=== PATIENT | male | born 1985 ===

== ENCOUNTER 2019-06-16 16:46 | Emergency (ER) | payer BC ==
[~2019-06-16] VITALS: Ht 185.4 cm; Wt 122.0 kg
[2019-06-16 17:47] LABS: BASOPHILS % 1.5 % (0.0-2.0); EOSINOPHILS % 2.1 % (0.0-5.0); HEMATOCRIT. 42.3 % (42.0-52.0); HEMOGLOBIN. 14.4 g/dL (14.0-18.0); LYMPHOCYTES % 29.6 % (20.0-50.0); MEAN CORPUSCULAR HEMOGLOBIN 28.8 pg (28.0-32.0); MEAN PLATELET VOLUME 8.2 fl (7.4-10.4); MONOCYTES % 9.9 % (2.0-8.0); NEUTROPHILS % 56.9 % (40.0-76.0); PLATELET 282 x1000/uL (130-400); RED BLOOD CELL COUNT 4.98 mill/uL (4.7-6.1); RED CELL DISTRIBUTION WIDTH 14.3 % (11.6-14.6)
[2019-06-16 17:49] LABS: CLARITY URINE TURBID (CLEAR); COLOR URINE YELLOW (YELLOW); KETONES URINE NEGATIVE (NEGATIVE); LEUKOCYTE ESTERASE URINE NEGATIVE (NEGATIVE); NITRITE URINE NEGATIVE (NEGATIVE); OCCULT BLOOD URINE NEGATIVE (NEGATIVE); PROTEIN URINE NEGATIVE (NEGATIVE); SPECIFIC GRAVITY URINE 1.023 (1.005-1.030)
[2019-06-16 17:54] LABS: CHLORIDE 108 mEq/L (98-107)
[2019-06-16 17:59] LABS: PROTHROMBIN TIME 10.4 sec (9.6-11.0)
[2019-06-16] MEDS ORDERED: KETOROLAC 15MG/ML VIAL IV ONE (18:00)
[2019-06-16] MEDS ORDERED: SODIUM CHLORIDE 0.9% 1,000 ML IV ONE (18:00)
[2019-06-16 19:03] VITALS: BP 148/84
== END 2019-06-16 19:15 | disposition home or self-care (01) ==
LOC: ER 16:46
DX: R10.32 Left lower quadrant pain (principal); F17.200 Nicotine dependence, unspecified, uncomplicated; Z87.710 Personal history of (corrected) hypospadias; Z88.1 Allergy status to other antibiotic agents; Z86.11 Personal history of tuberculosis
CPT/HCPCS: 36415; 80053; 81003; 83605; 83690; 85025; 85610; 96374; 99283; J1885; J7030; Z7610